=== PATIENT | male | born 1950 | race Caucasian/White ===

== ENCOUNTER 2017-07-06 10:12 | Emergency (ER) | payer MEDICARE, BC ==
[2017-07-06 11:04] VITALS: BP 150/78
[2017-07-06] MEDS ORDERED: Acetaminophen 650 MG Tab.ER PO PRN (11:12)
[2017-07-06] MEDS ORDERED: Acetaminophen 325 MG Tab ONE (11:20)
--- NOTE | 2017-07-06 11:38 | CT ---
DATE OF SERVICE: 07/06/17 CLINICAL DATA: chest pain UNENHANCED CHEST CT: Multislice acquisition through the chest without IV contrast was performed. No priors. The exam is nondiagnostic for PE without IV contrast. No pneumothorax. No pleural effusions. No aortic aneurysm. There are mild atelectatic changes in the dependent portion of both lungs. The lungs are otherwise clear. The heart size is normal. There are coronary artery calcifications. No pericardial effusion. No hilar or mediastinal adenopathy. There are two fluid density lesions within the right lobe of the liver. The largest measures 3.1 cm. The smaller lesion measures 14 mm. These most likely represent cysts. No other focal hepatic lesions. There is a small hiatal hernia. There is gas noted within the distal esophagus most likely related to GE reflux. No other significant findings. IMPRESSION: No acute abnormalities. Other findings as discussed above. [id number] MTDD
[2017-07-06] MEDS ORDERED: cefTRIAXone 1 GM Vial ONE (11:57)
--- NOTE | 2017-07-06 13:36 | EDM.PDOC ---
ED HPI GENERAL MEDICAL PROBLEM - General Chief Complaint: Cardiovascular Problem Stated Complaint: CHEST PAIN Time Seen by Provider: 07/06/17 10:13 Source of Information: Reports: Patient, Family History Limitations: Reports: No Limitations - History of Present Illness INITIAL COMMENTS - FREE TEXT/NARRATIVE: This is a 67yo M who presents to the ER with chest pain that has been on and off since last night. He states the pain is left sided and 2-3/10. Patient states he has had some shortness of breath as well. Patient then started to have intractable chills 20 minutes prior to arrival and notes a urine odor just this am with some burning with urination. Patient denies fever and initial temp was normal then repeat oral temp done in ER shows a fever. He had a hip replacement done over 2 months ago where he did require a arellano. There were no complications at that time. He denies sob at this time. Duration: Hour(s):, Intermittent Location: Reports: Chest, Pelvis Quality: Reports: Ache, Burning Severity: Mild Improves with: Reports: None Worsens with: Reports: None Associated Symptoms: Reports: Chest Pain, Fever/Chills, Shortness of Breath, Other (burning with urination) - Related Data Allergies Allergy/AdvReac Type Severity Reaction Status Date / Time No Known Allergies Allergy Verified 07/06/17 10:35 Home Meds: Home Meds Finasteride [Finasteride] 5 mg PO DAILY 06/08/13 [History] Simvastatin [Simvastatin] 20 mg PO DAILY 06/08/13 [History] Tamsulosin HCl [Tamsulosin HCl] 0.4 mg PO DAILY 06/08/13 [History] Aspirin [[place] Aspirin] 81 mg PO DAILY 11/17/14 [History] Meloxicam [Meloxicam] 15 mg PO DAILY 11/17/14 [History] Metoprolol Succinate [Toprol XL] 25 mg PO DAILY 07/08/15 [History] Past Medical History HEENT History: Reports: Hard of Hearing Cardiovascular History: Reports: High Cholesterol, Hypertension, Stents, Other ( See Below) Other Cardiovascular History: on Plavix Respiratory History: Reports: None Gastrointestinal History: Reports: None Genitourinary History: Reports: Prostate Disorder Musculoskeletal History: Reports: Back Pain, Chronic Other Musculoskeletal History: L shoulder injury Neurological History: Reports: None Psychiatric History: Reports: None Endocrine/Metabolic History: Reports: None Hematologic History: Reports: None Immunologic History: Reports: None Oncologic (Cancer) History: Reports: None Dermatologic History: Reports: None - Past Surgical History GI Surgical History: Reports: Hernia Repair/Other Neurological Surgical History: Reports: Other (See Below) Musculoskeletal Surgical History: Reports: Hip Replacement Social & Family History - Tobacco Use Smoking Status *Q: Former Smoker Years of Tobacco use: 15 Used Tobacco, but Quit: Yes Month Tobacco Last Used: not within last 12 months Second Hand Smoke Exposure: No - Alcohol Use Days Per Week of Alcohol Use: 0 - Recreational Drug Use Recreational Drug Use: No ED ROS GENERAL - Review of Systems Review Of Systems: ROS reveals no pertinent complaints other than HPI. ED EXAM, GENERAL - Physical Exam Exam: See Below Exam Limited By: No Limitations General Appearance: Alert, WD/WN, No Apparent Distress Eye Exam: Bilateral Eye: EOMI, PERRL Ears: Normal External Exam Ear Exam: Bilateral Ear: TM normal Nose: Normal Inspection Throat/Mouth: Normal Inspection Head: Atraumatic, Normocephalic Neck: Normal Inspection Respiratory/Chest: No Respiratory Distress, Lungs Clear, Normal Breath Sounds, No Accessory Muscle Use, Chest Non-Tender Cardiovascular: Normal Peripheral Pulses, Regular Rate, Rhythm, No Edema, No Gallop, No JVD, No Murmur, No Rub Peripheral Pulses: 2+: Carotid (L), Carotid (R), Dorsalis Pedis (L), Dorsalis Pedis (R) GI/Abdominal: Normal Bowel Sounds Back Exam: Normal Inspection Extremities: Normal Inspection Neurological: Alert, Oriented, CN II-XII Intact Psychiatric: Normal Affect, Normal Mood Skin Exam: Warm, Dry, Intact Course - Vital Signs Last Recorded V/S: Last Vital Signs Temp 38.6 C H 07/06/17 11:03 Pulse 79 07/06/17 11:03 Resp BP 150/78 H 07/06/17 11:03 Pulse Ox 100 07/06/17 11:03 - Orders/Labs/Meds Orders: Active Orders 24 hr Category Date Time Status EKG Documentation Completion [RC] ASDIRECTED Care 07/06/17 10:30 Active CULTURE BLOOD [BC] Routine Lab 07/06/17 11:20 Received CULTURE BLOOD [BC] Stat Lab 07/06/17 10:50 Received CULTURE URINE [RM] Stat Lab 07/06/17 12:07 Received Labs: Laboratory Tests 07/06/17 07/06/17 07/06/17 Range/Units 10:28 10:28 10:28 WBC 10.8 D (4.0-11.0) K/uL RBC 5.27 (4.50-6.50) M/uL Hgb 14.9 (13.0-18.0) g/dL Hct 43.6 (40.0-54.0) % MCV 83 (76-96) fL MCH 28.3 (27.0-32.0) pg MCHC 34.2 (31.0-35.0) g/dL RDW 14.2 (11.0-16.0) % Plt Count 279 (150-400) K/uL MPV 10.1 H (6.0-10.0) fL Neut % (Auto) 85.3 H (45.0-70.0) % Lymph % (Auto) 11.6 L (20.0-40.0) % Garza % (Auto) 1.8 L (3.0-10.0) % Eos % (Auto) 0.8 L (1.0-5.0) % Baso % (Auto) 0.5 (0.0-0.5) % Neut # (Auto) 9.23 H (2.00-7.50) K/uL Lymph # (Auto) 1.25 L (1.50-4.00) K/uL Garza # (Auto) 0.19 L (0.20-0.80) K/uL Eos # (Auto) 0.09 (0.04-0.40) K/uL Baso # (Auto) 0.05 (0.02-0.10) K/uL PT (9.0-11.5) sec INR (1.0-3.5) D-Dimer, Quantitative (0-400) ng/mL Sodium 140 (136-145) mmol/L Potassium 4.4 (3.5-5.1) mmol/L Chloride 104 (98-107) mmol/L Carbon Dioxide 27.3 (21.0-32.0) mmol/L Anion Gap 13.1 (5.0-15.0) mmol/L BUN 25 (8-26) mg/dL Creatinine 1.32 H (0.70-1.30) mg/dL Est Cr Clr Drug Dosing 59.69 mL/min Estimated GFR (MDRD) 54 L (>60) MLS/MIN BUN/Creatinine Ratio 18.9 (6-25) Glucose 115 H (74-100) mg/dL Calcium 9.0 (8.5-10.1) mg/dL Total Bilirubin 0.8 D (0.0-1.0) mg/dL AST 16 (15-37) U/L ALT 20 (12-78) U/L Alkaline Phosphatase 71 (46-116) U/L Troponin I (0.000-0.060) ng/mL B-Natriuretic Peptide (0-125) pg/mL Total Protein 6.4 (6.4-8.2) g/dL Albumin 3.7 (3.4-5.0) g/dL Globulin 2.7 (2.2-4.2) g/dL Albumin/Globulin Ratio 1.4 (0.8-2.0) TSH, Ultra Sensitive 1.500 (0.358-3.740) uIU/mL Urine Color Yellow Urine Appearance Clear (CLEAR) Urine pH 7.0 (5.0-8.0) Ur Specific [place] 1.025 (1.003-1.030) Urine Protein Negative (NEGATIVE) mg/dL Urine Glucose (UA) Negative (NEGATIVE) mg/dL Urine Ketones Negative (NEGATIVE) mg/dL Urine Occult Blood Trace-intact H (NEGATIVE) Urine Nitrite Negative (NEGATIVE) Urine Bilirubin Negative (NEGATIVE) Urine Urobilinogen 0.2 (0.2-1.0) E.U./dL Ur Leukocyte Esterase Trace H (NEGATIVE) Urine RBC 0-5 H /HPF Urine WBC 0-5 H /HPF Ur Squamous Epith Cells Few /HPF Urine Bacteria Not seen /HPF 07/06/17 07/06/17 07/06/17 Range/Units 10:29 10:29 10:29 WBC (4.0-11.0) K/uL RBC (4.50-6.50) M/uL Hgb (13.0-18.0) g/dL Hct (40.0-54.0) % MCV (76-96) fL MCH (27.0-32.0) pg MCHC (31.0-35.0) g/dL RDW (11.0-16.0) % Plt Count (150-400) K/uL MPV (6.0-10.0) fL Neut % (Auto) (45.0-70.0) % Lymph % (Auto) (20.0-40.0) % Garza % (Auto) (3.0-10.0) % Eos % (Auto) (1.0-5.0) % Baso % (Auto) (0.0-0.5) % Neut # (Auto) (2.00-7.50) K/uL Lymph # (Auto) (1.50-4.00) K/uL Garza # (Auto) (0.20-0.80) K/uL Eos # (Auto) (0.04-0.40) K/uL Baso # (Auto) (0.02-0.10) K/uL PT 10.3 (9.0-11.5) sec INR 1.1 (1.0-3.5) D-Dimer, Quantitative 253 (0-400) ng/mL Sodium (136-145) mmol/L Potassium (3.5-5.1) mmol/L Chloride (98-107) mmol/L Carbon Dioxide (21.0-32.0) mmol/L Anion Gap (5.0-15.0) mmol/L BUN (8-26) mg/dL Creatinine (0.70-1.30) mg/dL Est Cr Clr Drug Dosing mL/min Estimated GFR (MDRD) (>60) MLS/MIN BUN/Creatinine Ratio (6-25) Glucose (74-100) mg/dL Calcium (8.5-10.1) mg/dL Total Bilirubin (0.0-1.0) mg/dL AST (15-37) U/L ALT (12-78) U/L Alkaline Phosphatase (46-116) U/L Troponin I < 0.017 (0.000-0.060) ng/mL B-Natriuretic Peptide 246 H (0-125) pg/mL Total Protein (6.4-8.2) g/dL Albumin (3.4-5.0) g/dL Globulin (2.2-4.2) g/dL Albumin/Globulin Ratio (0.8-2.0) TSH, Ultra Sensitive (0.358-3.740) uIU/mL Urine Color Urine Appearance (CLEAR) Urine pH (5.0-8.0) Ur Specific [place] (1.003-1.030) Urine Protein (NEGATIVE) mg/dL Urine Glucose (UA) (NEGATIVE) mg/dL Urine Ketones (NEGATIVE) mg/dL Urine Occult Blood (NEGATIVE) Urine Nitrite (NEGATIVE) Urine Bilirubin (NEGATIVE) Urine Urobilinogen (0.2-1.0) E.U./dL Ur Leukocyte Esterase (NEGATIVE) Urine RBC /HPF Urine WBC /HPF Ur Squamous Epith Cells /HPF Urine Bacteria /HPF Meds: Medications Discontinued Medications Generic Name Dose Route Start Last Admin Trade Name Freq PRN Reason Stop Dose Admin Acetaminophen 650 mg 07/06/17 11:12 07/06/17 11:23 Tylenol Arthritis Pain PO 650 mg Q4HR PRN Administration Fever Acetaminophen Confirm 07/06/17 11:20 Tylenol Administered 07/06/17 11:21 Dose 650 mg .ROUTE .STK-MED ONE Ceftriaxone Sodium Confirm 07/06/17 11:57 07/06/17 12:02 Rocephin Administered 07/06/17 11:58 1 gm Dose Administration 1 gm .ROUTE .STK-MED ONE Departure - Departure Time of Disposition: 12:20 Disposition: Home, Self-Care 01 Condition: Good Clinical Impression: Chills with fever UTI (urinary tract infection) Qualifiers: Urinary tract infection type: acute cystitis Hematuria presence: with hematuria Qualified Code(s): N30.01 - Acute cystitis with hematuria Referrals: Kirby Martin MD [Primary Care Provider] - Forms: ED Department Discharge Additional Instructions: Return the next two days for the IV antibiotic. Take the Tylenol every four hours, but do not exceed 4grams in a 24 hour period. Call or return to the ER if the fever persists or does not get better. Counseled on sepsis and close monitoring. We will f/u urine culture and blood cultures. May continue IV antibiotics for 5-7 days as needed. - My Orders Last 24 Hours: My Active Orders 07/06/17 10:30 EKG Documentation Completion [RC] ASDIRECTED 07/06/17 10:50 CULTURE BLOOD [BC] Stat 07/06/17 11:20 CULTURE BLOOD [BC] Routine 07/06/17 12:07 CULTURE URINE [RM] Stat - Assessment/Plan Last 24 Hours: My Active Orders 07/06/17 10:30 EKG Documentation Completion [RC] ASDIRECTED 07/06/17 10:50 CULTURE BLOOD [BC] Stat 07/06/17 11:20 CULTURE BLOOD [BC] Routine 07/06/17 12:07 CULTURE URINE [RM] Stat
== END 2017-07-06 12:13 | disposition home or self-care (01) ==
LOC: LB.ED 10:12
DX: N30.01 Acute cystitis with hematuria (principal); I10 Essential (primary) hypertension; E78.00 Pure hypercholesterolemia, unspecified; Z87.891 Personal history of nicotine dependence; Z79.82 Long term (current) use of aspirin; Z79.899 Other long term (current) drug therapy
CPT/HCPCS: 36415; 71250; 80053; 81001; 83880; 84443; 84484; 85025; 85379; 85610; 87040; 87086; 87088; 87186; 87804; 93005; 99284; 99285; A9270; J0696

== ENCOUNTER 2018-09-29 10:53 | Day surgery (SDC) | payer BC, MEDICARE ==
[~2018-09-29 10:53] MED LIST: Metoclopramide 10 MG/2 ML SDV IV PRN
[2018-09-29] MEDS: Sodium Chloride 0.9% 1,000 ML IV SCH (11:45)
[2018-09-29] MEDS ORDERED: Propofol 1,000 MG/100 ML SDV ONE (13:05)
[2018-09-29 13:41] VITALS: BP 143/79
--- NOTE | 2018-09-29 20:19 | OR ---
DATE OF OPERATION: 09/29/2018 PREOPERATIVE DIAGNOSIS: History of colon polyps. POSTOPERATIVE DIAGNOSIS: History of colon polyps. PROCEDURE: Colonoscopy with polypectomy. ANESTHESIA: MAC. ESTIMATED BLOOD LOSS: Minimal. COMPLICATIONS: None. INDICATION FOR THE PROCEDURE: The patient is a 68-year-old male who previously had a colonoscopy 5 years ago, was found to have 1 polyp. The patient is here today for surveillance colonoscopy. Denies any bowel changes since that time. DESCRIPTION OF PROCEDURE: Informed consent was obtained from the patient and the patient was taken to the operating room and placed on the table in left lateral decubitus position. Monitored anesthesia care was administered. Digital rectal exam performed was normal. Colonoscope was then advanced through the anus directed towards the cecum. Cecum was reached and identified by appendiceal orifice as well as ileocecal valve. Colonoscope was then slowly withdrawn. The patient did have a small sessile polyp in the descending colon. This was removed with hot biopsy forceps. Bleeding was minimal. Colonoscope was then further withdrawn. Retroflexion was performed in the rectum which was also otherwise unremarkable. FINDINGS: Descending colon, small sessile polyp. RECOMMENDATIONS: I would recommend repeat surveillance colonoscopy in 5 years due to polyps. RACHEL/CHRISTINA /[id number]
== END 2018-09-29 14:30 | disposition home or self-care (01) ==
LOC: LB.SDS 10:53
PROVIDERS: ATTEND Surgery
DX: Z12.11 Encounter for screening for malignant neoplasm of colon (principal); D12.4 Benign neoplasm of descending colon; I10 Essential (primary) hypertension; E78.5 Hyperlipidemia, unspecified; Z86.010 Personal history of colon polyps; Z79.82 Long term (current) use of aspirin; Z79.899 Other long term (current) drug therapy
CPT/HCPCS: 88305; J2704; J7030

== ENCOUNTER → 2019-06-30 | Outpatient (CLI) | payer MEDICARE | LOC: LB.LAB 09:33 | PROVIDERS: ATTEND Nurse Practitioner Family | DX: N39.0 Urinary tract infection, site not specified (principal) | CPT/HCPCS: 81003 ==

== ENCOUNTER 2022-06-17 10:28 | Inpatient (IN) | payer BC, MEDICARE ==
[2022-06-17] MEDS ORDERED: Sodium Chloride 0.9% 500 ML IV ONE (10:56)
[2022-06-17 11:31] LABS: ESTIMATED GFR 65 mL/min (>60)
[2022-06-17] MEDS ORDERED: Magnesium Oxide 400 MG Tab PO ONE (12:18)
[2022-06-17] MEDS ORDERED: Acetaminophen 500 MG Tab ONE (13:28)
[2022-06-17] MEDS ORDERED: Acetaminophen 500 MG Tab PO ONE (13:33)
[2022-06-17] MEDS ORDERED: cefTRIAXone 1 GM Vial IVPUSH ONE (13:42)
[2022-06-17] MEDS ORDERED: cefTRIAXone 1 GM Vial ONE (13:55)
[2022-06-17] MEDS ORDERED: metroNIDAZOLE/Normal Saline 100 ML ONE ×2 (14:14→22:08)
[2022-06-17] MEDS ORDERED: Sodium Chloride 0.9% 1,000 ML IV SCH (14:15)
[2022-06-17] MEDS: metroNIDAZOLE/Normal Saline 500 MG in Premix Bag 1 BAG IV SCH ×2 (14:24→22:11)
[2022-06-17] MEDS ORDERED: Ondansetron 4 MG/2 ML SDV IV PRN (15:37)
[2022-06-17] MEDS: Enoxaparin 30 MG/0.3 ML Syringe SUBCUT SCH (17:17)
[2022-06-17] MEDS: Ciprofloxacin in D5W 200 ML IV SCH (19:42)
[2022-06-17] MEDS: Sodium Chloride 0.9% 1,000 ML IV SCH (19:43)
[2022-06-17] MEDS: Mirtazapine 15 MG Tab PO SCH (19:45)
[2022-06-17] MEDS: Sennosides 8.6 MG Tab PO SCH (19:45)
[2022-06-17] MEDS: Simvastatin 20 MG Tab PO SCH (19:45)
[2022-06-17] MEDS: Acetaminophen 325 MG Tab PO PRN (19:46)
[2022-06-17] MEDS ORDERED: Non-Formulary Medication 1 Each (Mirtazapine [Mirtazapine] 30 MG Tablet) PO SCH (20:00)
[2022-06-17] MEDS ORDERED: Ibuprofen 400 MG Tab PO PRN (21:46)
[2022-06-18] MEDS: Sodium Chloride 0.9% 1,000 ML IV SCH ×2 (05:43→16:19)
[2022-06-18] MEDS: metroNIDAZOLE/Normal Saline 500 MG in Premix Bag 1 BAG IV SCH ×3 (05:45→22:16)
[2022-06-18] MEDS ORDERED: metroNIDAZOLE/Normal Saline 100 ML ONE ×3 (05:45→22:14)
[2022-06-18] MEDS: Ciprofloxacin in D5W 200 ML IV SCH ×2 (07:24→19:37)
[2022-06-18] MEDS: Metoprolol Succinate 25 MG Tab.ER PO SCH (07:27)
[2022-06-18] MEDS: Omeprazole 20 MG Cap.CR PO SCH (07:27)
[2022-06-18] MEDS: Sennosides 8.6 MG Tab PO SCH ×2 (07:27→19:37)
[2022-06-18] MEDS: Aspirin 81 MG Tab.EC PO SCH (07:27)
[2022-06-18] MEDS ORDERED: Non-Formulary Medication 1 Each (Omeprazole [Omeprazole] 40 MG Capsule.Dr) PO SCH (08:00)
[2022-06-18] MEDS: Acetaminophen 325 MG Tab PO PRN ×2 (13:56→19:42)
[2022-06-18] MEDS: Enoxaparin 30 MG/0.3 ML Syringe SUBCUT SCH (14:45)
[2022-06-18] MEDS: Mirtazapine 15 MG Tab PO SCH (19:34)
[2022-06-18] MEDS: Simvastatin 20 MG Tab PO SCH (19:37)
[2022-06-19] MEDS: Sodium Chloride 0.9% 1,000 ML IV SCH ×2 (02:31→17:19)
[2022-06-19] MEDS ORDERED: metroNIDAZOLE/Normal Saline 100 ML ONE ×2 (06:08→13:53)
[2022-06-19] MEDS: metroNIDAZOLE/Normal Saline 500 MG in Premix Bag 1 BAG IV SCH ×3 (06:14→22:48)
[2022-06-19] MEDS: Sennosides 8.6 MG Tab PO SCH ×2 (07:56→19:50)
[2022-06-19] MEDS: Aspirin 81 MG Tab.EC PO SCH (07:56)
[2022-06-19] MEDS: Metoprolol Succinate 25 MG Tab.ER PO SCH (07:58)
[2022-06-19] MEDS: Ciprofloxacin in D5W 200 ML IV SCH ×2 (08:14→19:53)
[2022-06-19] MEDS: Omeprazole 20 MG Cap.CR PO SCH (08:48)
[2022-06-19] MEDS: Enoxaparin 30 MG/0.3 ML Syringe SUBCUT SCH (15:24)
[2022-06-19] MEDS: Simvastatin 20 MG Tab PO SCH (19:49)
[2022-06-19] MEDS: Mirtazapine 15 MG Tab PO SCH (19:50)
[2022-06-20 04:18] VITALS: PULSE 82
[2022-06-20] MEDS: metroNIDAZOLE/Normal Saline 500 MG in Premix Bag 1 BAG IV SCH (06:02)
[2022-06-20] MEDS: Omeprazole 20 MG Cap.CR PO SCH (08:25)
[2022-06-20] MEDS: Aspirin 81 MG Tab.EC PO SCH (08:25)
[2022-06-20] MEDS: Metoprolol Succinate 25 MG Tab.ER PO SCH (08:25)
[2022-06-20] MEDS: Sennosides 8.6 MG Tab PO SCH (08:25)
[2022-06-20] MEDS: Ciprofloxacin in D5W 200 ML IV SCH (08:26)
[2022-06-20] MEDS ORDERED: metroNIDAZOLE 500 MG Tab PO SCH (10:00)
[2022-06-20 10:29] VITALS: BP 129/85
[2022-06-20] MEDS ORDERED: Ciprofloxacin 500 MG Tab ONE (13:00)
[2022-06-20] MEDS ORDERED: metroNIDAZOLE 500 MG Tab ONE (13:00)
[2022-06-20] MEDS ORDERED: Ciprofloxacin 500 MG Tab PO SCH (20:00)
== END 2022-06-20 13:07 | disposition home or self-care (01) | DRG 463 ==
LOC: LB.ED 10:28 → EEVIPCON 14:11 → LB.MS 14:11
PROVIDERS: ADMIT Nurse Practitioner Family; ATTEND Nurse Practitioner Family
DX: N30.01 Acute cystitis with hematuria (principal); E78.5 Hyperlipidemia, unspecified; I10 Essential (primary) hypertension; Z20.822 Contact with and (suspected) exposure to COVID-19; Z90.6 Acquired absence of other parts of urinary tract; Z93.3 Colostomy status; Z79.899 Other long term (current) drug therapy; Z79.82 Long term (current) use of aspirin; Z90.79 Acquired absence of other genital organ(s); Z95.5 Presence of coronary angioplasty implant and graft; Z90.49 Acquired absence of other specified parts of digestive tract; Z98.890 Other specified postprocedural states; Z90.89 Acquired absence of other organs
CPT/HCPCS: 36415; 71045; 74176; 80048; 80053; 81001; 83605; 83735; 85025; 85027; 85651; 86140; 87040; 87086; 87804; 87804-59; 96361; 96374; 99285-25; A9270-GY; J0696; J0744; J1650; J3490; J7030; J7040; U0002

== ENCOUNTER 2024-04-24 22:29 | Emergency (ER) | payer MEDICARE ==
[2024-04-24] MEDS: Ondansetron 4 MG/2 ML SDV IVPUSH ONE (23:11)
[2024-04-24] MEDS: HYDROmorphone 2 MG/ML Syringe IVPUSH PRN (23:14)
[2024-04-24 23:17] LABS: BASOPHILS ABSOLUTE AUTO 0.08 K/uL (0.02-0.10); BASOPHILS PERCENT AUTO 0.9 % (0.0-0.5); EOSINOPHILS ABSOLUTE AUTO 0.21 K/uL (0.04-0.40); EOSINOPHILS PERCENT AUTO 2.5 % (1.0-5.0); HEMATOCRIT 44.8 % (40.0-54.0); HEMOGLOBIN 14.9 g/dL (13.0-18.0); LYMPHOCYTES ABSOLUTE AUTO 1.45 K/uL (1.50-4.00); LYMPHOCYTES PERCENT AUTO 17.1 % (20.0-40.0); MEAN CORPUSCULAR HEMOGLOBIN 27.1 pg (27.0-32.0); MEAN CORPUSCULAR HGB CONC 33.3 g/dL (31.0-35.0); MEAN CORPUSCULAR VOLUME 82 fL (76-96); MEAN PLATELET VOLUME 10.9 fL (6.0-10.0); MONOCYTES ABSOLUTE AUTO 0.98 K/uL (0.20-0.80); MONOCYTES PERCENT AUTO 11.6 % (3.0-10.0); NEUTROPHILS ABSOLUTE AUTO 5.74 K/uL (2.00-7.50); NEUTROPHILS PERCENT AUTO 67.9 % (45.0-70.0); PLATELET COUNT,PLT 380 K/uL (150-400); RED BLOOD CELL COUNT 5.49 M/uL (4.50-6.50); RED CELL DISTRIBUTION WIDTH 16.2 % (11.0-16.0); WHITE BLOOD CELL COUNT,WBC 8.5 K/uL (4.0-11.0)
[2024-04-24 23:36] LABS: ALBUMIN 3.2 g/dL (3.4-5.0); ANION GAP 12.2 mmol/L (5.0-15.0); BILIRUBIN TOTAL 0.8 mg/dL (0.0-1.0); BUN/CREATININE RATIO 14.5 (6-25); CALCIUM 8.5 mg/dL (8.5-10.1); CARBON DIOXIDE,CO2 26.7 mmol/L (21.0-32.0); CREATININE 1.45 mg/dL (0.70-1.30); EST CRCL DRUG DOSING (CG) 48.98 mL/min; POTASSIUM,K 3.9 mmol/L (3.5-5.1); PROTEIN TOTAL,TP 6.4 g/dL (6.4-8.2); TROPONIN I HIGH SENSITIVITY 13.5 pg/ml (<=60.4)
[2024-04-24] MEDS: HYDROmorphone 2 MG/ML Syringe IVPUSH ONE (23:38)
[2024-04-24 23:39] LABS: APPEARANCE,URINE TURBID (CLEAR); COLOR,URINE YELLOW
[2024-04-24 23:40] LABS: BILIRUBIN,URINE NEGATIVE (NEGATIVE); GLUCOSE,URINE NEGATIVE (NEGATIVE); KETONES,URINE NEGATIVE (NEGATIVE); LEUKOCYTE ESTERASE,URINE LARGE (NEGATIVE); NITRITE,URINE POSITIVE (NEGATIVE); OCCULT BLOOD,URINE MODERATE (NEGATIVE); PROTEIN,URINE >=300 mg/dL (NEGATIVE); UROBILINOGEN,URINE 0.2 E.U./dL (0.2-1.0)
[2024-04-24 23:41] LABS: BACTERIA,URINE MODERATE /HPF; SQUAMOUS EPITHELIAL CELLS,UR OCCASIONAL /HPF; WBC,URINE SEMI-PACKED /HPF
[2024-04-25] MEDS: Iodixanol 652 MG/ML 100 ML Bottle IV SCH (00:02)
[2024-04-25] MEDS: Sodium Chloride 0.9% 50 ML SDV FLUSH ONE (00:02)
[2024-04-25] MEDS: Sodium Chloride 0.9% 500 ML IV ONE (00:11)
[2024-04-25] MEDS: cefTRIAXone 1 GM Vial ONE (00:13)
[2024-04-25] MEDS: cefTRIAXone 1 GM in Sodium Chloride 0.9% 50 ML IV ONE (00:13)
[2024-04-25] MEDS: fentaNYL 100 MCG/2 ML SDV IVPUSH ONE ×2 (00:19→01:00)
[2024-04-25] MEDS: fentaNYL 100 MCG/2 ML SDV ONE ×2 (00:25→01:32)
[2024-04-25 02:31] VITALS: BP 191/100; PULSE 65
== END 2024-04-25 02:20 | disposition home or self-care (01) ==
LOC: LB.ED 22:29 → SUPCPDRO 22:29 → LB.ED 04-25 02:20
DX: R10.9 Unspecified abdominal pain (principal); I10 Essential (primary) hypertension; E78.00 Pure hypercholesterolemia, unspecified; Z90.49 Acquired absence of other specified parts of digestive tract; Z79.899 Other long term (current) drug therapy; Z79.82 Long term (current) use of aspirin
CPT/HCPCS: 36415; 74177; 80053; 81001; 83605; 83690; 84484; 85025; 96365; 96375; 96376; 99284; J0696; J1170; J2405; J3010; J3490; J7040

== ENCOUNTER 2025-02-01 16:53 | Emergency (ER) | payer MEDICARE ==
[2025-02-01] MEDS: Lidocaine 1% 5 ML VIAL INJECT ONE (17:20)
[2025-02-01 17:44] VITALS: BP 131/87; PULSE 76
== END 2025-02-01 17:40 | disposition home or self-care (01) ==
LOC: LB.ED 16:53
DX: N99.528 Other complication of incontinent external stoma of urinary tract (principal); I10 Essential (primary) hypertension; E78.00 Pure hypercholesterolemia, unspecified; Z95.5 Presence of coronary angioplasty implant and graft; Z90.49 Acquired absence of other specified parts of digestive tract; Z98.890 Other specified postprocedural states; Z79.82 Long term (current) use of aspirin; Z79.899 Other long term (current) drug therapy
CPT/HCPCS: 12001; 99283; J2003